=== PATIENT | female | born 1995 | race Caucasian/White ===

== ENCOUNTER → 2023-12-30 | Outpatient (CLI) | payer OTHER ==
[~2023-12-30] MED LIST: LEVAQUIN 5500 MG/TA1 PO; NEXPLANON68 MG ID; NORCO 325 MG-51 TAB PO; PERCOCET 325 MG1 TA2 PO; ZYRTEC 10MG10 MG PO
== END ==
LOC: MHCPAIN 13:30
DX: M50.122 Cervical disc disorder at C5-C6 level with radiculopathy (principal); M25.511 Pain in right shoulder
CPT/HCPCS: G0463

== ENCOUNTER → 2024-01-27 | Outpatient (CLI) | payer OTHER ==
[~2024-01-27] MED LIST changes: +Iohexol 300 - 10 ML VIAL ONE; +Lidocaine PF 2% (20 MG/ML) 2 ML VIAL ONE
== END ==
LOC: MHCPAIN 09:42
DX: M54.12 Radiculopathy, cervical region (principal); M54.2 Cervicalgia
CPT/HCPCS: J1100; Q9967

== ENCOUNTER → 2024-03-24 | Outpatient (CLI) | payer OTHER ==
[~2024-03-24] MED LIST changes: -Iohexol 300 - 10 ML VIAL ONE; -Lidocaine PF 2% (20 MG/ML) 2 ML VIAL ONE
== END ==
LOC: MHCPAIN 15:00
DX: M50.222 Other cervical disc displacement at C5-C6 level (principal); M54.2 Cervicalgia
CPT/HCPCS: G0463